=== PATIENT | male | born 1940 | race Caucasian/White ===

== ENCOUNTER 2016-11-16 13:04 | Day surgery (SDC) | payer MEDICARE, BC ==
[~2016-11-16 13:04] MED LIST: Brimonidine 0.2% Ophth Soln 5 ML Bottle ONE; Cataract Ophth Solution EYERT PRN; Hypromellose 2.5% Ophth Soln 15 ML Bottle EYERT PRN; Lactated Ringers 1,000 ML IV SCH; Lidocaine 1% 2 ML ONE; Lidocaine 3.5% Ophth Gel 1 ML Bottle ONE; Povidone-Iodine 5% Sterile Ophth Soln 30 ML Bottle ONE
[2016-11-16] MEDS: Proparacaine 0.5% Ophth Soln 15 ML Bottle EYERT PRN ×2 (14:11→15:09)
[2016-11-16] MEDS ORDERED: Midazolam 1 MG/ML 2 ML SDV ONE (14:18)
[2016-11-16] MEDS ORDERED: Phenylephrine 10% Ophth Soln 5 ML Bot EYERT PRN (14:37)
[2016-11-16] MEDS ORDERED: Lidocaine 1% PF 2 ML SDV INFILT ONE (15:09)
[2016-11-16] MEDS ORDERED: Chondroitin Sulfate/Hyaluronate Sodium Ophth Inj 0.5 ML Syringe IOCULAR ONE (15:11)
[2016-11-16] MEDS ORDERED: Ciprofloxacin 0.3% Ophth Soln 2.5 ML Bottle EYERT ONE (15:12)
[2016-11-16] MEDS ORDERED: Vancomycin 500 MG SDV EYERT ONE (15:12)
[2016-11-16] MEDS ORDERED: Balanced Salt Solution Ophth Irrig 500 ML Bottle IOCULAR ONE (15:13)
[2016-11-16 15:26] VITALS: BP 192/91
--- NOTE | 2016-11-16 18:56 | OR ---
PREOPERATIVE DIAGNOSIS: Senile nuclear cataract, right eye. POSTOPERATIVE DIAGNOSIS: Pseudophakia, right eye. PROCEDURE PERFORMED: Complex cataract extraction with intraocular lens implantation by phacoemulsification technique, right eye. ANESTHESIA: Topical anesthesia. ESTIMATED BLOOD LOSS: None. COMPLICATIONS: None. INDICATIONS: The patient is a 76-year-old gentleman who was found to have a senile nuclear cataract, reducing his best corrected visual acuity. After explaining the risks, benefits, and alternatives of cataract surgery, an informed consent was obtained. DESCRIPTION OF PROCEDURE: After identifying the patient in the preoperative area, the patient was brought to the operating room. The patient was prepped and draped in a sterile fashion. A lid speculum was inserted into the eye. Lidocaine gel was applied to the external surface of the eye. A paracentesis was made 3 clock hours away from the surgeon's operating hand. The anterior chamber was anesthetized with preservative-free Lidocaine. The anterior chamber was filled with Viscoat. A clear corneal incision was made at the 180-degree meridian with a 2.4 mm keratome. The pupil was found to be only 4.5 mm. The patient also has a history of Flomax. The decision was made to use a Malyugin ring to stabilize the pupil and dilated. The Malyugin ring was injected into the anterior chamber and attached to the iris to dilate the pupil. A continuous tear of circular capsulorrhexis was performed. The nucleus was hydrodissected with balanced salt solution. The nucleus was sculpted and removed from the eye using a phaco chop technique. The residual cortex was removed with the I/A handpiece. The anterior chamber and capsular bag were filled with Amvisc. The capsular bag was seen to be intact. The posterior chamber lens implant, model ARJUN PCB00 with a power of 22.0 diopters and a serial number of [id number] was injected into the capsular bag. The lens was rotated completely into the capsular bag with a Sinskey hook. The Malyugin ring was removed from the eye. The residual viscoelastic was removed with the I/A handpiece. The anterior chamber was filled with balanced salt solution to physiologic pressure. The corneal wound was closed by stromal hydration. The wound was seen to be water tight by Weck-[employer] sponge testing. The patient received a drop of Ciloxan and Alphagan at the end of the case. The patient tolerated the procedure well and was taken to the recovery room in stable condition. This case is to be considered a complex cataract surgery given the use of a Malyugin ring to dilate and stabilize the pupil. This patient will be followed postoperatively by Dr. Svetlana Gann. SKA: 11/16/2016 15:21:33 MODL: 11/16/2016 18:51:35 /[id number]
== END 2016-11-16 16:20 | disposition home or self-care (01) ==
LOC: VM.SDS 13:04
PROVIDERS: ATTEND Ophthalmology
DX: H25.11 Age-related nuclear cataract, right eye (principal); Z79.01 Long term (current) use of anticoagulants; Z96.1 Presence of intraocular lens; Z79.899 Other long term (current) drug therapy
CPT/HCPCS: 00142; 36415; 66984; 85610; A9270; J2250; J3370; J7120; V2632

== ENCOUNTER 2016-12-14 15:03 | Day surgery (SDC) | payer MEDICARE, BC ==
[~2016-12-14 15:03] MED LIST changes: -Cataract Ophth Solution EYERT PRN; +Cataract Ophth Solution EYERT SCH; -Hypromellose 2.5% Ophth Soln 15 ML Bottle EYERT PRN; +Hypromellose 2.5% Ophth Soln 15 ML Bottle EYERT SCH; -Lactated Ringers 1,000 ML IV SCH; -Lidocaine 3.5% Ophth Gel 1 ML Bottle ONE; +Sodium Chloride 0.9% 10 ML Syringe FLUSH PRN
[2016-12-14] MEDS: Proparacaine 0.5% Ophth Soln 15 ML Bottle EYERT SCH ×2 (15:29→17:47)
[2016-12-14] MEDS ORDERED: Albuterol 0.083% 2.5 MG/3 ML Neb Soln NEB ONE (15:40)
[2016-12-14] MEDS ORDERED: Morphine 10 MG/ML Syringe IV ONE (15:41)
[2016-12-14] MEDS ORDERED: Furosemide 40 MG/4 ML VIAL ONE (16:25)
[2016-12-14] MEDS: Furosemide 20 MG/2 ML VIAL IVPUSH ONE (16:29)
[2016-12-14] MEDS ORDERED: Lidocaine 1% PF 2 ML SDV INJECT ONE (17:48)
[2016-12-14] MEDS ORDERED: Chondroitin Sulfate/Hyaluronate Sodium Ophth Inj 0.5 ML Syringe IOCULAR ONE (17:50)
[2016-12-14] MEDS ORDERED: Vancomycin 500 MG SDV EYELF ONE (17:51)
[2016-12-14] MEDS ORDERED: Ciprofloxacin 0.3% Ophth Soln 2.5 ML Bottle EYELF ONE (17:51)
[2016-12-14] MEDS ORDERED: Balanced Salt Solution Ophth Irrig 500 ML Bottle IOCULAR ONE (17:52)
[2016-12-14] MEDS ORDERED: Lidocaine 3.5% Ophth Gel 1 ML Bottle ONE (18:00)
[2016-12-14 18:15] VITALS: BP 167/80
--- NOTE | 2016-12-15 08:30 | OR ---
PREOPERATIVE DIAGNOSIS: Senile nuclear cataract, right eye. POSTOPERATIVE DIAGNOSIS: Pseudophakia, right eye. PROCEDURE PERFORMED: Complex cataract extraction with intraocular lens implantation by phacoemulsification technique, right eye. ANESTHESIA: Topical anesthesia. BLOOD LOSS: None. COMPLICATIONS: None. INDICATIONS: The patient is a 76-year-old gentleman, who was found to have a senile nuclear cataract, reducing his best corrected visual acuity. After explaining the risks, benefits, and alternatives of cataract surgery, an informed consent was obtained. DESCRIPTION OF PROCEDURE: After identifying the patient in the preoperative area, the patient was brought to the operating room. The patient was prepped and draped in a sterile fashion. A lid speculum was inserted into the eye. Lidocaine gel was applied to the external surface of the eye. A paracentesis was made 3 clock hours away from the surgeon's operating hand. The anterior chamber was anesthetized with preservative-free lidocaine. The anterior chamber was filled with Viscoat. A clear corneal incision was made at the 180 degree meridian with a 2.4 mm keratome. The pupil was inspected and found to be only 4 mm. The decision was made to use a Malyugin ring to dilate the pupil. The patient also has a history of being on Flomax and was suspected of having a floppy iris. The Malyugin ring was injected into the anterior chamber and attached to the iris to dilate the pupil. A continuous tear circular capsulorrhexis was performed. The nucleus was hydrodissected with balanced salt solution. The nucleus was sculpted and removed from the eye using a divide and conquer technique with the phacoemulsification handpiece. The residual cortex was removed with the I/A handpiece. The anterior chamber and capsular bag were filled with Amvisc. The capsular bag was inspected and found to be intact. A posterior chamber lens was injected into the capsular bag and completely rotated into the capsular bag with a Sinskey hook. This was ARJUN lens, model ZCB00 with a power of 23.0 diopters and a serial number of [id number]. The residual viscoelastic was removed with the I/A hand piece. The Malyugin ring was removed from the eye. The anterior chamber was filled with balanced salt solution. This was done to a physiologic pressure. The corneal wound was closed with stromal hydration. The wound was seen to be watertight by Weck-[employer] sponge testing. The patient received a drop of brimonidine and Vigamox at the end of the case. The patient tolerated the procedure well and was taken to the recovery room in stable condition. This is to be considered a complex cataract surgery given the use of a Malyugin ring to dilate the pupil. SKA: 12/14/2016 18:20:57 MODL: 12/14/2016 23:44:09 /[id number]
[2016-12-15] MEDS: Furosemide 20 MG/2 ML VIAL IVPUSH ONE (11:29)
== END 2016-12-14 19:17 | disposition home or self-care (01) ==
LOC: VM.SDS 15:03
PROVIDERS: ATTEND Ophthalmology
DX: Z96.1 Presence of intraocular lens (principal); I13.0 Hypertensive heart and chronic kidney disease with heart failure and stage 1 through stage 4 chronic kidney disease, or unspecified chronic kidney disease; N18.3 Chronic kidney disease, stage 3 (moderate); I50.30 Unspecified diastolic (congestive) heart failure; G47.33 Obstructive sleep apnea (adult) (pediatric); Z95.5 Presence of coronary angioplasty implant and graft; Z98.52 Vasectomy status; Z79.01 Long term (current) use of anticoagulants; Z79.899 Other long term (current) drug therapy
CPT/HCPCS: 00142; 36415; 66984; 85610; A9270; C1780; J1940; J3370; J7620